=== PATIENT | male | born 1975 | race Caucasian/White ===

== ENCOUNTER 2019-12-04 12:26 | Emergency (ER) | payer OTHER, SELFPAY ==
[2019-12-04 12:30] VITALS: BP 141/82; PULSE 77; RESP 14; TEMP 36.8; O2SAT 95; BMI 27.4
--- NOTE | 2019-12-04 12:45 | ED.GENADULT ---
HPI - General Adult General Chief complaint: Eye Problems Stated complaint: Poked in left eye last night Time Seen by Provider: 12/04/19 12:34 Source: patient Mode of arrival: Ambulatory Limitations: no limitations History of Present Illness HPI narrative: 44-year-old male. Wears corrective lenses however does not were contacts. Has never had eye surgeries in the past to include PRK/LASIK here for evaluation of left eye irritation and pain and blurry vision. He also has a foreign body sensation. He states he bent over last evening when he was outside and unsure whether not he got grass in his eye or was poked with something. He states symptoms have continues/worsened overnight. Has not tried anything for the symptoms prior to arrival Related Data Previous Rx's Medication Instructions Recorded erythromycin 0.5 inch EYE-LEFT TID 2 Days #3.5 12/04/19 gram Allergies Allergy/AdvReac Type Severity Reaction Status Date / Time No Known Drug Allergies Allergy Verified 12/04/19 12:37 Review of Systems Constitutional Constitutional: Denies fever(s) and Denies headache(s) Eyes Comments: Left eye irritation, foreign body sensation, blurry vision ENT Ears, Nose, Mouth, and Throat: Denies headache(s) and Denies sinus pain Integumentary/Breasts Skin/Breast: Denies lesions and Denies rash Neurologic Neurologic: Denies behavioral changes and Denies headache(s) Psychiatric Psychiatric: Denies behavioral changes Hematologic/Lymphatic Hematologic/Lymphatic: Denies easy bleeding and Denies easy bruising Patient History Medical History Healthy adult (Acute) Social History Smoking Status: Unknown if ever smoked Smoking Status: Unknown if ever smoked alcohol intake frequency: holidays/special occasions only Substance Use Type: does not use Exam Initial Vital Signs Initial Vital Signs: Vital Signs Temperature 98.3 F 12/04/19 12:30 Pulse Rate 77 12/04/19 12:30 Respiratory Rate 14 12/04/19 12:30 Blood Pressure 141/82 H 12/04/19 12:30 Pulse Oximetry 95 12/04/19 12:30 Const General: cooperative and comfortable Limitations: mental status not altered HENAK Head: normal to inspection and normocephalic Nose: external nose normal Mouth: oral mucosae normal Eyes Eyelids: no eyelid abnormalities Sclera: scleral abnormality Cornea: corneas abnormal on the left fluorescein used and abrasion and fluorescein used Pupils: PERRL EOM: EOM intact bilaterally Skin Lesions: no lesions Rashes: no rashes Neuro General: patient alert and patient awake Speech: speech normal Extrem General: normal to inspection and capillary refill normal Psych Appearance: grossly normal and well kempt Course Orders Ordered: Discontinued Medications Erythromycin (Erythromycin Ophth Oint) 1 applic EYE-LEFT NOW ONE Stop: 12/04/19 12:54 Last Admin: 12/04/19 13:00 Dose: 1 applic Documented by: CRISPIN Fluorescein Sodium (Ful-Mariella) 1 mg EYE-BOTH NOW ONE Stop: 12/04/19 12:35 Last Admin: 12/04/19 12:59 Dose: 1 mg Documented by: CRISPIN Proparacaine HCl (Parcaine 0.5% Ophth Deanna) 1 drops EYE-LEFT NOW ONE Stop: 12/04/19 12:35 Last Admin: 12/04/19 13:00 Dose: 1 1000units Documented by: CRISPIN Vital Signs Vital signs: Vital Signs - 8 hr 12/04/19 12:30 Temperature 98.3 F Pulse Rate 77 Respiratory Rate 14 Blood Pressure 141/82 H Pulse Oximetry 95 Medical Decision Making MDM Narrative Medical decision making narrative: Visual acuity noted, fluorescein uptake at approximately 1200 hours position. Not within the visual axis. Will place on erythromycin ointment. He was given return precautions and follow-up instructions. He expressed understanding and agreement plan. Discharge Plan Departure Patient Disposition: Home Clinical Impression: Corneal abrasion Qualifiers: Encounter type: initial encounter Laterality: left Qualified Code(s): S05.02XA - Injury of conjunctiva and corneal abrasion without foreign body, left eye, initial encounter Instructions: DI for Corneal Abrasion Activity Restrictions/Additional Instructions: Use the erythromycin ointment as directed. Return to the emergency department for any new or worsening symptoms Prescriptions: New erythromycin 5 mg/gram (0.5 %) ointment 0.5 inch EYE-LEFT TID 2 Days Qty: 3.5 RF: 0
--- NOTE | 2019-12-04 12:46 | PC.NURSE ---
Pt is suppose to be wearing glasses
[2019-12-04] MEDS: FLUORESCEIN 1 MG STRIP EYE-BOTH (12:59)
[2019-12-04] MEDS: PROPARACAINE 0.5% OPHTH SOL 1 DROPS EYE-LEFT (13:00)
[2019-12-04] MEDS: ERYTHROMYCIN OPHTH 1 GM OINT 1 APPLIC EYE-LEFT (13:00)
[2019-12-04] MEDS: TET,DIPH,PERTUSS(ACELL),VAC/PF 0.5 ML SYRINGE IM (13:07)
== END 2019-12-04 13:22 | disposition home or self-care (01) ==
PROVIDERS: Emergency Provider Emergency Medicine
DX: S05.02XA Injury of conjunctiva and corneal abrasion without foreign body, left eye, initial encounter (principal); Z23 Encounter for immunization
CPT/HCPCS: 90471; 99283; 90715